=== PATIENT | female | born 2000 | race Native Hawaiian/Other Pacific Islander ===

== ENCOUNTER 2022-11-24 20:13 | Emergency (ER) | payer BC, SELFPAY ==
--- NOTE | ~2022-11-24 | XR_ITS ---
EXAMINATION: XR SOFT TISSUE NECK CLINICAL INDICATION: Fishbone foreign body COMPARISON: None available. TECHNIQUE: 2 views of the soft tissue neck were obtained. FINDINGS: No convincing evidence for radiopaque foreign body. XR/XR soft tissue neck IMPRESSION: No convincing evidence for radiopaque foreign body.
--- NOTE | ~2022-11-24 | CT_ITS ---
EXAMINATION: CT SOFT TISSUE NECK WITHOUT CONTRAST CLINICAL INFORMATION: Fishbone evaluation COMPARISON: None available. TECHNIQUE: Helical imaging was performed in the axial plane with generation of coronal and sagittal reformatted images. This CT examination was performed using dose optimization techniques as appropriate, variously including the following: *Automated exposure control *Adjustment of mA and/or kV according to patient size (this includes techniques or standardized protocols for targeted exams where dose is matched to indication/reason for exam; i.e. extremities or head) *Use of iterative reconstruction technique DLP: 398 mGy-cm FINDINGS: No radiopaque foreign bodies. Specifically, a foreign body that might reflect a fishbone is not identified within the imaged soft tissues of the neck and superior mediastinum. No cervical adenopathy is identified. The parotid glands are homogeneous in attenuation. The submandibular glands are normal. No contour abnormality or pathologic enhancement is seen within the oral cavity or pharyngeal mucosal space. The laryngeal structures are normal. The parapharyngeal fat is preserved. The carotid sheath vasculature opacify normally. No extra mucosal soft tissue mass or fluid collection is seen. No retropharyngeal fluid collection is seen. The thyroid gland is normal. The superior mediastinum is unremarkable. The lung apices are clear. The mastoid air cells and visualized portions of the paranasal sinuses are well-aerated. The temporomandibular joints are normal. No periapical disease is identified. No osseous abnormalities are seen. The imaged portions of the brain parenchyma are unremarkable. CT/CT soft tissue neck wo IV con IMPRESSION: No radiopaque foreign bodies. Specifically, a foreign body that might reflect a fishbone is not identified within the imaged soft tissues of the neck and superior mediastinum. No unremarkable exam.
[2022-11-24 20:16] VITALS: BP 121/72; PULSE 84; RESP 16; TEMP 37.1; O2SAT 99; BMI 21.0
--- NOTE | 2022-11-24 20:39 | ED_ITS ---
HPI - General Adult General Chief complaint: General Medical Stated complaint: Fish bone stuck in throat Time Seen by Provider: 11/24/22 22:38 Source: patient Mode of arrival: ambulatory Limitations: no limitations History of Present Illness HPI narrative: Patient is a 22 year old assigned female at with no reported medical history presenting to the emergency department today after ingesting a fish bone. Patient states that she had fish for dinner and felt herself ingest a fish bone. Patient states that she can feel it stuck in her throat, on the right side. Patient states that she attempted to make herself throw up but she did not swallow or throw the bone up. Patient states that her vomit was blood tinged. Patient states that she can still feel the bone in the right side of her throat and has pain at rest but more pain with talking. Patient denies any dizziness, lightheadedness, abdominal pain, nausea, vomiting, fever, chills, blurry vision, double vision, loss of vision, chest pain, difficulty breathing, shortness of breath, back pain, night sweats, pain with urination, increased urinary frequency, increased urinary urgency, blood in her urine or stool, syncope or a near syncopal episode, recent trauma or falls, bowel incontinence, bladder incontinence, bowel retention, bladder retention, or any other complaints at this time. Onset (ago): minute(s) Relieving factors: none Exacerbating factors: other (speaking) Associated symptoms: denies other symptoms Treatments prior to arrival: other (self induced vomiting) Related Data Allergies Allergy/AdvReac Type Severity Reaction Status Date / Time No Known Allergies Allergy Verified 11/24/22 20:23 Review of Systems Constitutional: Constitutional: Reports no additional constitutional complaints, Denies chills, Denies fever(s) and Denies night sweats Eyes: Eyes: Reports no additional eye complaints, Denies blurry vision, Denies change in vision, Denies diplopia, Denies eye discharge, Denies loss of vision and Denies eye pain ENT: Denies dizziness Comments: throat pain, foreign body sensation in throat Cardiovascular: Cardiovascular: Reports no additional cardiovascular complaints, Denies chest pain, Denies lightheadedness, Denies Loss of Consciousness and Denies dyspnea Respiratory: Respiratory: Reports no additional respiratory complaints and Denies dyspnea Gastrointestinal: Gastrointestinal: Reports no additional gastrointestinal complaints, Denies abdominal pain, Denies melena, Denies hematochezia, Denies change in bowel habits and Denies change in stool character Genitourinary: Genitourinary: Denies hematuria, Denies urinary frequency, Denies dysuria, Denies urinary incontinence, Denies urinary hesitancy and Denies urinary urgency Musculoskeletal: Musculoskeletal: Reports no additional musculoskeletal complaints, Denies numbness and Denies tingling Neurologic: Denies dizziness, Denies loss of vision, Denies numbness and Denies tingling Psychiatric: Psychiatric: Reports no additional psychiatric complaints Endocrine: Endocrine: Reports no additional endocrine complaints Hematologic/Lymphatic: Hematologic/Lymphatic: Reports no additional hematologic/lymphatic complaints Allergic/Immunologic: Allergic/Immunologic: Reports no additional allergic/immunologic complaints PMFSH Past Medical History Attestation statement: The following information was validated with the patient. Source: old records reviewed and nursing notes reviewed Social History Social History Advance Directives: No Advance Directives Information Provided: No Physical Exam ED Vital Signs: Vital Signs - 24 hr 11/24/22 20:16 11/25/22 00:00 Temperature 98.7 F Pulse Rate 84 74 Respiratory Rate 16 16 Blood Pressure 121/72 119/78 Pulse Oximetry 99 100 Oxygen Delivery Method Room Air Room Air BMI result Body Mass Index 21.0 Const General: cooperative, no acute distress, alert and awake Nutritional Appearance: well nourished Orientation/consciousness: patient oriented x3 Limitations: no limitations [facility] Head: Yes normal to inspection and Yes atraumatic Ears: hearing grossly normal bilaterally and external ears normal General nose exam: Normal external nose present, no nasal discharge noted and no epistaxis Face and sinus: Yes normal facial exam, No abrasion and No laceration Mouth: Normal oral and palatal mucosa present, no drooling and no muffled voice Eyes General: appearance normal, both eyes and all related structures Periorbital: periorbital findings normal Eyelids: Yes eyelids normal Conjunctivae: conjunctivae normal Pupils: Equal, round and reactive pupils present EOM: EOMs intact bilaterally Neck Neck: Yes normal visual inspection, Yes full ROM and Yes no lymphadenopathy Chest Chest palpation & inspection: normal inspection of the chest Resp Effort & Inspection: normal respiratory effort and able to speak in complete sentences Auscultation: clear to auscultation bilaterally Cardio Rate: regular rate Rhythm: regular rhythm GI Inspection: Yes normal to inspection Palpation (GI): Soft to palpation, not firm, nontender and no guarding Neuro General: patient oriented x3 and moves all extremities Cranial nerves: Yes Equal, round and reactive pupils present Cognition (Neuro): normal cognition Motor exam (neuro): 5/5 motor strength present throughout Sensory Exam: Normal double simultaneous stimulation for sensation Coordination: dklqky-mo-kdew test normal Extrem General: Yes normal to inspection, Yes full ROM and Yes capillary refill normal Psych Appearance: grossly normal Mental Status: mental status grossly normal Affect: normal affect Attitude: cooperative Thought process: Normal thought process present Thought content: Normal thought content present Insight: Good insight present (Psych) Course Course Course Narrative: This is a rapid medical exam. Deferred additional HPI, ROS, PE to primary provider. 22 yo female here with concern for fish bone stuck in her throat. Will obtain x-ray soft tissue neck VSS Medical Decision Making Medical Decision Making MDM Narrative: Patient is a 22 year old assigned female at with no reported medical history presenting to the emergency department today with a fish bone stuck in her throat. Patient's physical exam was as noted in the physical exam portion of this chart. Patient's soft tissue neck x-ray and CT showed no acute process. Patient had persistent feeling of fish bone being stuck on the right side of her upper throat. I consulted with our GI provider who recommended transfer to a facility with an ENT. [facility], [facility], and [facility] all declined the patient. [facility], Dr. Torres, accepted. I explained my physical exam findings as well as all test results to the patient. I answered all questions asked by the patient. Patient verbalized agreement and understanding with this treatment plan and transfer. Differential Diagnosis Differential Diagnoses: The differential diagnosis associated with the presentation includes Retained fish bone Foreign body in esophagus Admission/Observation Consideration of admission/observation: Escalation of care including admission/observation considered Patient transferred to [facility] for ENT. Consult Healthcare Provider Management of the patient was discussed with: Deblocker (spoke with covering GI as noted in the MDM rationale portion of this note. Spoke with [place] [facility] as noted in the MDM Rationale portion of this note.) Independent Interpretation I performed an independent interpretation of an: Plain X-Ray and CT Scan Interpretation: My interpretation is in agreement with the radiologist's impression of these imaging studies. EXAMINATION: XR SOFT TISSUE NECK CLINICAL INDICATION: Fishbone foreign body COMPARISON: None available. TECHNIQUE: 2 views of the soft tissue neck were obtained. FINDINGS: No convincing evidence for radiopaque foreign body. XR/XR soft tissue neck IMPRESSION: No convincing evidence for radiopaque foreign body. Dictated By: Han Ross MD Signed By: Electronically signed by Han Ross MD 11/24/22 2146 EXAMINATION: CT SOFT TISSUE NECK WITHOUT CONTRAST CLINICAL INFORMATION: Fishbone evaluation COMPARISON: None available. TECHNIQUE: Helical imaging was performed in the axial plane with generation of coronal and sagittal reformatted images. This CT examination was performed using dose optimization techniques as appropriate, variously including the following: *Automated exposure control *Adjustment of mA and/or kV according to patient size (this includes techniques or standardized protocols for targeted exams where dose is matched to indication/reason for exam; i.e. extremities or head) *Use of iterative reconstruction technique DLP: 398 mGy-cm FINDINGS: No radiopaque foreign bodies. Specifically, a foreign body that might reflect a fishbone is not identified within the imaged soft tissues of the neck and superior mediastinum. No cervical adenopathy is identified. The parotid glands are homogeneous in attenuation. The submandibular glands are normal. No contour abnormality or pathologic enhancement is seen within the oral cavity or pharyngeal mucosal space. The laryngeal structures are normal. The parapharyngeal fat is preserved. The carotid sheath vasculature opacify normally. No extra mucosal soft tissue mass or fluid collection is seen. No retropharyngeal fluid collection is seen. The thyroid gland is normal. The superior mediastinum is unremarkable. The lung apices are clear. The mastoid air cells and visualized portions of the paranasal sinuses are well-aerated. The temporomandibular joints are normal. No periapical disease is identified. No osseous abnormalities are seen. The imaged portions of the brain parenchyma are unremarkable. CT/CT soft tissue neck wo IV con IMPRESSION: No radiopaque foreign bodies. Specifically, a foreign body that might reflect a fishbone is not identified within the imaged soft tissues of the neck and superior mediastinum. No unremarkable exam. Dictated By: Art Green MD Signed By: Electronically signed by Art Green MD 11/25/22 0031 Radiology Impression Discussion of test interpretation with radiology: I have reviewed the radiologist's reading. Critical Care Time Critical Care Time Critical Care Time: Yes Total Critical Care Time: 55 Attestation: I spent 55 minutes of Critical Care Time with this patient. This does not include time spent on separately reported billable procedures. Discharge Plan Discharge Clinical Impression: Foreign body in throat Patient Disposition: [facility] Transfer Details: [facility] - Dr. Torres
[2022-11-25] VITALS: BP 119/78; PULSE 74; RESP 16; O2SAT 100
--- NOTE | 2022-11-25 01:56 | PC.NURSE ---
pt has no diffculty swallowing, pt is talking in full sentences, no s/s of distress call reinoso at pt side. skin pink warm and dry. sat 100% on room air.
--- NOTE | 2022-11-25 02:38 | MHC.EDTECH ---
call out to [facility] transfer line at 0129 for possible transfer, denied transfer due to closed to capacity
--- NOTE | 2022-11-25 03:06 | MHC.EDTECH ---
call out to [facility] transfer line at 0136 for possible transfer, they declined transfer due to no beds available
--- NOTE | 2022-11-25 03:08 | MHC.EDTECH ---
call out to [facility] transfer line at 0138 for possible transfer, declined due to no beds available
--- NOTE | 2022-11-25 03:11 | MHC.EDTECH ---
call out to [facility] transfer line for possible transfer, demographics were faxed
--- NOTE | 2022-11-25 03:13 | MHC.EDTECH ---
[facility] patient placement called back at 0230 with bed assignment and recieving DR Nurse to Nurse # was given
--- NOTE | 2022-11-25 03:14 | MHC.EDTECH ---
call out to [facility] at 0255 to book transport for pt to [place] [facility], estimated eta given was within the hour
[2022-11-25 03:48] VITALS: BP 112/82; PULSE 71; RESP 16; O2SAT 100
== END 2022-11-25 03:52 | disposition short-term general hospital (02) ==
PROVIDERS: Emergency Provider Emergency Medicine
DX: T17.228A Food in pharynx causing other injury, initial encounter (principal); W44.F3XA Food entering into or through a natural orifice, initial encounter; Y93.9 Activity, unspecified; Y92.9 Unspecified place or not applicable; Y99.9 Unspecified external cause status
CPT/HCPCS: 70360; 70490; 99284; 99285